=== PATIENT | female | born 1985 | race Caucasian/White ===

== ENCOUNTER 2017-01-18 15:11 | Emergency (ER) | payer OTHER ==
--- NOTE | 2017-01-18 15:54 | UC ---
Throat Pain/Nasal Tacho HPI - HPI Summary HPI Summary: 1. sinus pain and pressure x 2 weeks, pnd, nasal congestion, no cough, no fever 2. vaginal discharge, + odor , no fever, no chills, no abdominal pain . hx of frequent BV - History of Current Complaint Chief Complaint: UCGeneralIllness Stated Complaint: SINUS COMPLAINT/PERSONAL Time Seen by Provider: 01/18/17 15:30 Hx Obtained From: Patient Hx Last Menstrual Period: 01/13/17 Onset/Duration: Gradual Onset, Lasting Weeks - 2, Still Present Severity: Moderate Cough: None Associated Signs & Symptoms: Positive: Sinus Discomfort, Nasal Discharge. Negative: Wheezing, Hoarseness, Fever, Vomiting, Rash - Allergies/Home Medications Allergies/Adverse Reactions: Allergies Allergy/AdvReac Type Severity Reaction Status Date / Time Bee Venom Allergy Anaphylatic Verified 01/18/17 15:37 Shock CAPPER BERRIES Allergy Anaphylatic Uncoded 01/18/17 15:40 Shock Home Medications: Home Medications Epinephrine [Epipen 2-Thomas] 0.3 mg IM SEE INSTRUCTIONS 01/18/17 [History Confirmed 01/18/17] Pseudoephedrine TAB* [Sudafed TAB*] 60 mg PO Q6H PRN 01/18/17 [History Confirmed 01/18/17] PMH/Surg Hx/FS Hx/Imm Hx Previously Healthy: Yes - Surgical History Surgical History: Yes Surgery Procedure, Year, and Place: DEVIATED SEPTUM. TOOTH IMPLANT - Family History Known Family History: Negative: Diabetes - Social History Alcohol Use: Occasionally Substance Use Type: None Smoking Status (MU): Never Smoked Tobacco Review of Systems Constitutional: Negative Skin: Negative Eyes: Negative ENT: Sore Throat, Nasal Discharge Respiratory: Negative Cardiovascular: Negative Gastrointestinal: Negative All Other Systems Reviewed And Are Negative: Yes Physical Exam Triage Information Reviewed: Yes Appearance: Well-Appearing, No Pain Distress, Well-Nourished Vital Signs: Initial Vital Signs Temp 97.9 F 01/18/17 15:29 Pulse 78 01/18/17 15:29 Resp 16 01/18/17 15:29 BP 140/79 01/18/17 15:29 Pulse Ox 100 01/18/17 15:29 Vital Signs Reviewed: Yes Eyes: Positive: Conjunctiva Clear ENT: Positive: Normal ENT inspection, Hearing grossly normal, Pharyngeal erythema, Nasal congestion, Nasal drainage, TMs normal Neck exam: Normal Neck: Positive: Supple, Nontender, No Lymphadenopathy Respiratory: Positive: Chest non-tender, Lungs clear, Normal breath sounds, No respiratory distress Cardiovascular: Positive: RRR, No Murmur, Pulses Normal Abdominal Exam: Normal Abdomen Description: Positive: Nontender, Soft. Negative: CVA Tenderness (R), CVA Tenderness (L), Distended, Guarding Bowel Sounds: Positive: Present Neurological: Positive: Alert Skin Exam: Normal UC Physical Exam Vital Signs On Initial Exam: Initial Vitals Temp Pulse Resp BP Pulse Ox 97.9 F 78 16 140/79 100 01/18/17 15:29 01/18/17 15:29 01/18/17 15:29 01/18/17 15:29 01/18/17 15:29 - Genitalia Exam Female Genitourinary: Other - pelvic deffered Throat Pain/Nasal Course/Dx - Differential Dx/Diagnosis Provider Diagnoses: sinusitis. BV Discharge - Discharge Plan Condition: Stable Disposition: HOME Prescriptions: Amoxicillin/Clavulanate TAB* [Augmentin TAB 875*] 875 mg PO BID #20 tab Metronidazole [Flagyl 500 MG TAB] 500 mg PO BID #14 tab Patient Education Materials: Bacterial Vaginosis (ED), Sinusitis (ED) Additional Instructions: follow up with your pcp in 7 days if not better
== END 2017-01-18 16:03 | disposition home or self-care (01) ==
LOC: UCCORT 15:11
DX: J32.9 Chronic sinusitis, unspecified (principal); N76.0 Acute vaginitis
CPT/HCPCS: 99202; G0463